=== PATIENT | female | born 1950 | race Caucasian/White ===

== ENCOUNTER 2018-03-26 14:05 | Emergency (ER) | payer OTHER, MEDICARE ==
[~2018-03-26] VITALS: Ht 165.1 cm; Wt 71.7 kg
[~2018-03-26 14:05] MED LIST: ACAI500 MG; BENADRYL25 MG; CLONAZEPAM PO; CYMBALTA60 MG PO; DILAUDID 2 MG TA2 MG; DYAZIDE 37.5-21 EACH PO; ESTRACE0.5 MG PO; KEFLEX500 MG PO; LIDODERM 5%1 PATC1; LISINOPRIL5 MG; NAPROXEN DELAY500 M1 PO; NEXIUM40 MG PO; NORCO 5-325 TA1 EACH PO; NORVASC 5 MG TAB5 MG PO; OMEPRAZOLE; PROTONIX 20 MG20 M1; PROZAC40 MG PO; REMERON15 MG PO; VICOPROFEN 2001 EACH PO; VITAMIN A8000 UNI1; VITAMIN B-12500 MCG; VITAMIN D-32000 UNIT; VITAMIN D2000 UNI1; VITAMIN E100 UNI1; ZANAFLEX4 M1 PO; ZOCOR20 MG
[2018-03-26 17:13] VITALS: BP 124/72
== END 2018-03-26 17:23 | disposition home or self-care (01) ==
LOC: ER 14:05
DX: S81.811A Laceration without foreign body, right lower leg, initial encounter (principal); K21.9 Gastro-esophageal reflux disease without esophagitis; F32.9 Major depressive disorder, single episode, unspecified; G43.909 Migraine, unspecified, not intractable, without status migrainosus; M79.7 Fibromyalgia; Z88.5 Allergy status to narcotic agent; Z88.8 Allergy status to other drugs, medicaments and biological substances; Z88.0 Allergy status to penicillin; Z88.2 Allergy status to sulfonamides; Z90.710 Acquired absence of both cervix and uterus; Z90.49 Acquired absence of other specified parts of digestive tract; W22.8XXA Striking against or struck by other objects, initial encounter; Y92.89 Other specified places as the place of occurrence of the external cause; Y99.0 Civilian activity done for income or pay; Y99.8 Other external cause status

== ENCOUNTER 2018-04-05 17:17 | Emergency (ER) | payer OTHER, MEDICARE ==
[~2018-04-05] VITALS: Ht 165.1 cm; Wt 71.2 kg
[2018-04-05 18:49] VITALS: BP 154/84
== END 2018-04-05 18:50 | disposition home or self-care (01) ==
LOC: ER 17:17
DX: S81.811D Laceration without foreign body, right lower leg, subsequent encounter (principal); X58.XXXD Exposure to other specified factors, subsequent encounter; K21.9 Gastro-esophageal reflux disease without esophagitis; F32.9 Major depressive disorder, single episode, unspecified; G43.909 Migraine, unspecified, not intractable, without status migrainosus; M79.7 Fibromyalgia; Z90.49 Acquired absence of other specified parts of digestive tract; Z88.0 Allergy status to penicillin; Z88.2 Allergy status to sulfonamides; Z88.5 Allergy status to narcotic agent